=== PATIENT | female | born 1985 | race American Indian/Alaskan Native ===

== ENCOUNTER 2018-04-10 09:49 | Emergency (ER) | payer MEDICAID ==
[2018-04-10 10:07] VITALS: BP 118/80
[2018-04-10] MEDS ORDERED: MOTRIN PO ONE (10:27)
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
--- NOTE | 2018-04-10 11:27 | XRay Report ---
RIGHT SHOULDER, 3 VIEWS: HISTORY: right shoulder pain. Normal bone mineralization. No acute osseous injury or joint pathology is detected. The soft tissues are unremarkable. IMPRESSION: Right shoulder within normal limits.
--- NOTE | 2018-04-10 11:27 | XRay Report ---
RIGHT HAND, 3 views: History: Right hand pain The bony architecture is intact. Bony alignment is normal. No soft tissue abnormalities are seen. The joint spaces appear preserved. IMPRESSION: Normal right hand.
== END 2018-04-10 11:55 | disposition home or self-care (01) ==
LOC: ED 09:49
DX: S43.402A Unspecified sprain of left shoulder joint, initial encounter (principal); S09.8XXA Other specified injuries of head, initial encounter; S60.222A Contusion of left hand, initial encounter; Z88.0 Allergy status to penicillin; Y04.2XXA Assault by strike against or bumped into by another person, initial encounter; Y93.89 Activity, other specified; Y99.8 Other external cause status; Y92.524 Gas station as the place of occurrence of the external cause
CPT/HCPCS: 70450